=== PATIENT | male | born 1955 | race African-American/Black ===

== ENCOUNTER 2021-10-30 11:30 | Emergency (ER) | payer MEDICAID ==
[~2021-10-30] VITALS: Ht 172.7 cm; Wt 80.0 kg
[2021-10-30] MEDS ORDERED: lexapro (11:51)
[2021-10-30] MEDS ORDERED: ACETAMINOPHEN 325MG TABLET PO ONE (12:00)
[2021-10-30] MEDS ORDERED: IBUP-2030 MT (13:08)
[2021-10-30 13:31] VITALS: BP 145/65
== END 2021-10-30 13:25 | disposition home or self-care (01) ==
LOC: ER 11:44
DX: S90.32XA Contusion of left foot, initial encounter (principal); I10 Essential (primary) hypertension; W22.8XXA Striking against or struck by other objects, initial encounter; Y93.89 Activity, other specified; Y92.018 Other place in single-family (private) house as the place of occurrence of the external cause
CPT/HCPCS: 73630; 99283

== ENCOUNTER 2021-10-31 14:36 | Emergency (ER) | payer MEDICAID, OTHER ==
[~2021-10-31] VITALS: Ht 188 cm; Wt 90.0 kg
[~2021-10-31 14:36] MED LIST: IBUP-2030 MT; lexapro
[2021-10-31] MEDS ORDERED: LORAZEPAM 2MG/ML CPJ IV STA (14:56)
[2021-10-31] MEDS ORDERED: SODIUM CHLORIDE 0.9% 1,000 ML IV ONE (15:00)
[2021-10-31] MEDS ORDERED: ACETAMINOPHEN 325MG TABLET PO NR (17:15)
[2021-10-31 19:34] LABS: CLARITY URINE CLEAR (CLEAR); COLOR URINE YELLOW (YELLOW); KETONES URINE NEGATIVE (NEGATIVE); LEUKOCYTE ESTERASE URINE NEGATIVE (NEGATIVE); NITRITE URINE NEGATIVE (NEGATIVE); OCCULT BLOOD URINE NEGATIVE (NEGATIVE); PH URINE 7.5 (4.5-8.0); PROTEIN URINE 1+ (NEGATIVE)
[2021-10-31 20:00] LABS: BASOPHILS % 1.6 % (0.0-2.0); HEMATOCRIT. 40.9 % (42.0-52.0); HEMOGLOBIN. 13.5 g/dL (14.0-18.0); LYMPHOCYTES % 29.8 % (20.0-50.0); MEAN CORPUSCULAR HEMOGLOBIN 30.6 pg (28.0-32.0); MEAN CORPUSCULAR VOLUME 92.4 fL (80.0-94.0); MEAN PLATELET VOLUME 9.7 fl (7.4-10.4); NEUTROPHILS % 57.6 % (40.0-76.0); PLATELET 408 x1000/uL (130-400); RED BLOOD CELL COUNT 4.43 mill/uL (4.7-6.1); RED CELL DISTRIBUTION WIDTH 14.6 % (11.6-14.6)
[2021-10-31 20:02] LABS: *AMPHETAMINES SCREEN URINE NEGATIVE (NEGATIVE); *BARBITURATES SCREEN URINE NEGATIVE (NEGATIVE); *BENZODIAZEPINES SCREEN URINE NEGATIVE (NEGATIVE); *COCAINE SCREEN URINE NEGATIVE (NEGATIVE); METHADONE URINE SCREEN NEGATIVE (NEGATIVE); OPIATES URINE SCREEN NEGATIVE (NEGATIVE)
[2021-10-31 20:03] LABS: CANNABINOID URINE SCREEN PRESUMTIVE POSITIVE (NEGATIVE); PHENCYCLIDINE URINE SCREEN PRESUMTIVE POSITIVE (NEGATIVE)
[2021-10-31 20:13] LABS: CHLORIDE 104 mEq/L (98-107)
[2021-10-31 20:18] LABS: ETHANOL BLOOD < 10 mg/dL
[2021-10-31 20:22] LABS: CREATINE KINASE 205 IU/L (39-308)
[2021-10-31] MEDS ORDERED: ASPIRIN 325MG EC TABLET PO ONE (22:00)
[2021-10-31] MEDS ORDERED: CLONIDINE 0.2MG TABLET PO ONE (23:30)
[2021-10-31] MEDS ORDERED: CEFTRIAXONE 1 G PREMIX 50 ML IV ONE (23:45)
[2021-10-31] MEDS ORDERED: SODIUM CHLORIDE 0.9% 1000ML BAG (SEPSIS BOLUS) IV ONE (23:45)
[2021-10-31] MEDS ORDERED: AZITHROMYCIN 500MG/250ML 250 ML IV ONE (23:45)
[2021-11-01 02:03] VITALS: BP 124/88
== END 2021-11-01 02:54 | disposition short-term general hospital (02) ==
LOC: ER 14:43 → UNDOADMIN 23:39 → MICUSO 23:39 → UNDODISIN 11-01 02:15 → MICUSO 11-01 02:54
DX: T40.991A Poisoning by other psychodysleptics [hallucinogens], accidental (unintentional), initial encounter (principal); G92.9 Unspecified toxic encephalopathy; F17.200 Nicotine dependence, unspecified, uncomplicated; I10 Essential (primary) hypertension; Z20.822 Contact with and (suspected) exposure to COVID-19; I44.7 Left bundle-branch block, unspecified; Z82.49 Family history of ischemic heart disease and other diseases of the circulatory system; Z79.1 Long term (current) use of non-steroidal anti-inflammatories (NSAID); Y92.89 Other specified places as the place of occurrence of the external cause
CPT/HCPCS: 36415; 70450; 71045; 73590; 80053; 80305; 80307; 80320; 80329; 81003; 82140; 82550; 83605; 83690; 83880; 84484; 85025; 87040; 87426; 93005; 99285; J0456; J0696; J2060; J7030; G0480

== ENCOUNTER 2021-12-08 10:15 | Emergency (ER) | payer OTHER ==
[~2021-12-08] VITALS: Ht 182.9 cm; Wt 100.0 kg
[2021-12-08 10:16] VITALS: BP 142/84
[2021-12-08] MEDS ORDERED: POTA10CA42 MT (10:40)
[2021-12-08] MEDS ORDERED: FURO-152 MT (10:40)
== END 2021-12-08 11:26 | disposition home or self-care (01) ==
LOC: ER 10:39
DX: R60.9 Edema, unspecified (principal); I11.0 Hypertensive heart disease with heart failure; I50.9 Heart failure, unspecified; F12.10 Cannabis abuse, uncomplicated
CPT/HCPCS: 99283

== ENCOUNTER 2022-07-25 07:54 | Emergency (ER) | payer MEDICAID, OTHER ==
[~2022-07-25] VITALS: Ht 177.8 cm; Wt 104.0 kg
[~2022-07-25 07:54] MED LIST changes: +FURO-152 MT; +POTA10CA42 MT
[2022-07-25] MEDS ORDERED: HYDROCODONE/ACETAMINOPHEN 5/325MG TABLET PO NR (08:30)
[2022-07-25] MEDS ORDERED: HYDR-4009 MT (10:59)
[2022-07-25] MEDS ORDERED: IBUP-2029 MT (10:59)
[2022-07-25 12:00] VITALS: BP 158/90
== END 2022-07-25 12:31 | disposition home or self-care (01) ==
LOC: ER 07:54
DX: S82.62XA Displaced fracture of lateral malleolus of left fibula, initial encounter for closed fracture (principal); M25.552 Pain in left hip; F12.10 Cannabis abuse, uncomplicated; F16.10 Hallucinogen abuse, uncomplicated; I10 Essential (primary) hypertension; Y93.01 Activity, walking, marching and hiking; Y92.89 Other specified places as the place of occurrence of the external cause; Y99.8 Other external cause status
CPT/HCPCS: 29515; 73502; 73610; 73700; 99284; Z7610